=== PATIENT | female | born 1955 | race Caucasian/White ===

== ENCOUNTER → 2017-03-26 | Day surgery (SDC) | payer OTHER ==
[~2017-03-26] MED LIST: ANUSOL-HC SUPP25 M1 PR; ASPIRIN PO; ASPIRIN81 M2 PO; CITALOPRAM HBR40 MG PO; CLARINEX5 MG PO; COLESTID PO; KLOR-CON PO; LASIX20 MG PO; LOTREL 10/20 MG1 CAP PO; TENORMIN50 MG PO; ZOCOR PO; ZOCOR20 MG PO; ZYRTEC10 M2 PO
--- NOTE | ~2017-03-26 | OR ---
Unit #: [id number] #: [id number] Patient: AKILA CHILEL [id number] [address] [place], [place] [address] [id number] MR#: [id number] NAME: AKILA CHILEL ROOM: Date of Procedure: 03/26/2017 Admission Date: 03/26/2017 Surgeon: Joe Waterman M.D. : 1955 Attending Physician: Joe Waterman M.D. Primary Care Physician: Alvarez Jensen Jr., M.D. OPERATIVE REPORT PREOPERATIVE DIAGNOSES The patient has presented with history of diarrhea and fecal incontinence. In addition, she has also noted scant hematochezia on an occasional basis. PROCEDURES PERFORMED 1. Colonoscopy and biopsies. 2. Colonoscopy with polypectomy. POSTOPERATIVE DIAGNOSES 1. The patient had 2 sessile polyps in the cecum. These were 5 mm and 1 cm each. Both were removed using snare cautery polypectomy. 2. Mild sigmoid and descending colon diverticulosis. 3. Small internal hemorrhoids. 4. Rest of the examination up to cecum and terminal ileum was normal. The quality of the prep was excellent. Multiple random colonic biopsies obtained from throughout the colon to rule out microscopic or collagenous colitis. RECOMMENDATIONS 1. Colestid 1 g p.o. b.i.d. The patient will skip a dose in case of constipation in the future. 2. Use Lomotil 2.5 mg p.r.n. for diarrhea sparingly in the future. SEDATION USED MAC. DESCRIPTION OF PROCEDURE Following detailed explanation of potential risks and complications of a colonoscopy, namely perforation, bleeding, and complications related to sedation, the patient was brought to GI lab and laid in the left lateral decubitus position. A digital rectal examination was performed, which was normal. Lubricated tip of the Olympus video colonoscope was inserted through the anus and advanced under direct vision. The scope was advanced and passed up to sigmoid into descending colon. Scant small diverticula were noted in this area. The scope tip was then navigated all the way up to cecum with visualization of the ileocecal valve and the appendiceal orifice. Preparation was excellent with good visualization and photodocumentation was obtained. Last few inches of terminal ileum also visualized after intubation of the ileocecal valve and appeared normal. Successive segments of the colonic mucosa were examined upon withdrawal. The patient was noted to have 2 sessile polyps in the cecum, one adjacent to appendiceal orifice and the second one a little farther away. Both Unit #: [id number] #: [id number] Patient: AKILA CHILEL were removed using snare cautery polypectomy. They were 5 mm and a 1 cm each. No additional polyps noted. Other than the scant diverticula seen in the left side, no other abnormalities were found. Multiple random colonic biopsies obtained from throughout the colon to rule out microscopic or collagenous colitis. The patient had small internal hemorrhoids at anal verge. These were seen on retroflexion as well as on direct examination. There were too small to require any intervention. The scope was then withdrawn. The patient returned to the recovery area. She tolerated the procedure without any postprocedure complications. Dictated by... Errol Tarango/yovani TD: 03/26/2017 12:49 JOB #: [id number] CC: Alvarez Jensen Jr., M.D. OPERATIVE REPORT Page 1 of 1 X Joe Waterman MD X PROCEDURE OPERATIVE NOTE
== END | disposition home or self-care (01) ==
LOC: COPS 10:04
DX: K63.5 Polyp of colon (principal); K64.8 Other hemorrhoids; K57.30 Diverticulosis of large intestine without perforation or abscess without bleeding; E66.01 Morbid (severe) obesity due to excess calories; Z68.42 Body mass index [BMI] 45.0-49.9, adult; Z79.82 Long term (current) use of aspirin; Z79.899 Other long term (current) drug therapy; Z88.0 Allergy status to penicillin; Z90.49 Acquired absence of other specified parts of digestive tract; Z90.711 Acquired absence of uterus with remaining cervical stump; Z96.653 Presence of artificial knee joint, bilateral; Z98.890 Other specified postprocedural states
CPT/HCPCS: 88305